=== PATIENT | female | born 1945 | race Caucasian/White ===

== ENCOUNTER 2018-05-02 18:58 | Emergency (ER) | payer MEDICARE, MEDICAID ==
[~2018-05-02] VITALS: Ht 162.6 cm; Wt 58.1 kg
[~2018-05-02 18:58] MED LIST: ASPI81TA31 PO; EZET10TA13 PO; INSU100V7 SQ; LEVO50TA PO; LOSA25TA13 PO; SITA1TAB6 PO
[2018-05-02] MEDS ORDERED: OXYCODONE (19:36)
[2018-05-02] MEDS ORDERED: ACETAMINOPHEN (19:36)
[2018-05-02] MEDS ORDERED: KETOROLAC TROMETHAMINE 15 MG INJ IV ONE (20:15)
[2018-05-02] MEDS ORDERED: IV NORMAL SALINE 1000 ML BAG IV ONE (20:15)
[2018-05-02] MEDS ORDERED: METOCLOPRAMIDE HCL 10 MG/2 ML VIAL IV ONE (20:15)
--- NOTE | 2018-05-02 20:20 | NUR ---
PT REFUSES BLOOD DRAW. MADE AWARE.
[2018-05-02] MEDS ORDERED: KETOROLAC TROMETHAMINE 15 MG INJ ONE (20:32)
[2018-05-02] MEDS ORDERED: METOCLOPRAMIDE HCL 10 MG/2 ML VIAL ONE (20:32)
--- NOTE | 2018-05-02 20:35 | NUR ---
PT ABLE TO AMBULATE TO RESTROOM UNASSISTED WITH STEADY GAIT.
--- NOTE | 2018-05-02 20:43 | NUR ---
PT IN BED RESTING QUIETLY. PT'S SON AT BEDSIDE. PT'S IV FLUIDS ARE INFUSING. PT IS CALM AND COOPERATIVE. NO SIGNS OF DISTRESS WITNESSED AT THIS TIME.
--- NOTE | 2018-05-02 21:20 | NUR ---
Patient discharged to home in stable conditon. Written and verbal after care instructions given. Patient verbalizes understanding of instructions. Patient able to ambulate unassisted with steady gait. Patient left with all personal belongings.
[2018-05-02 21:28] VITALS: BP 118/68
== END 2018-05-02 21:20 | disposition home or self-care (01) ==
LOC: ER 19:00
DX: R11.2 Nausea with vomiting, unspecified (principal); G89.18 Other acute postprocedural pain; E11.9 Type 2 diabetes mellitus without complications; Z90.710 Acquired absence of both cervix and uterus; Z88.6 Allergy status to analgesic agent; Z79.4 Long term (current) use of insulin; Z79.891 Long term (current) use of opiate analgesic; Z79.82 Long term (current) use of aspirin; Z79.899 Other long term (current) drug therapy
CPT/HCPCS: 96361; 96374; 96375; 99284; A4663; J1885; J2765; J7030

== ENCOUNTER 2021-04-07 09:52 | Emergency (ER) | payer MEDICARE, OTHER ==
[~2021-04-07] VITALS: Ht 162.6 cm; Wt 57.2 kg
[~2021-04-07 09:52] MED LIST changes: +ACETAMINOPHEN; -ASPI81TA31 PO; -EZET10TA13 PO; +EZET10TA15 PO; -LOSA25TA13 PO; +LOSA25TA27 PO; +OXYCODONE
--- NOTE | 2021-04-07 10:13 | NUR ---
PT IS IN ROOM #2A. DR GUNDERSON EVALUATED THE PT.
[2021-04-07] MEDS ORDERED: IV NORMAL SALINE 1000 ML BAG IV ONE ×2 (10:30→10:45)
[2021-04-07] MEDS ORDERED: SEMA0.25 SQ (10:39)
[2021-04-07 11:05] LABS: BASOPHILS % (AUTO) 0.2 % (0.0-2.0); EOSINOPHILS # (AUTO) 0.1 K/uL (0.0-0.7); EOSINOPHILS % (AUTO) 1.1 % (0.0-7.0); HEMATOCRIT 38.9 % (31.2-41.9); HEMOGLOBIN 12.6 g/dL (10.9-14.3); LYMPHOCYTES # (AUTO) 1.9 K/uL (20.0-40.0); LYMPHOCYTES % (AUTO) 30.8 % (20.5-51.5); MEAN CORPUSCULAR HGB CONC 33 g/dL (32.3-35.6); MEAN CORPUSCULAR VOLUME 89.2 fL (75.5-95.3); MONOCYTES # (AUTO) 0.7 K/uL (2.0-10.0); MONOCYTES % (AUTO) 12.1 % (0.0-11.0); NEUTROPHILS # (AUTO) 3.4 K/uL (1.8-8.9); NEUTROPHILS % (AUTO) 55.8 % (38.5-71.5); PLATELET COUNT (AUTO) 360 K/uL (179-408); RED BLOOD CELL COUNT(AUTO) 4.36 MIL/uL (3.63-4.92); WHITE BLOOD COUNT (AUTO) 6.1 K/uL (3.8-11.8)
[2021-04-07 11:18] LABS: CREATININE 0.6 mg/dL (0.6-1.3); POTASSIUM 3.7 mmol/L (3.5-5.1)
[2021-04-07 11:30] LABS: BILIRUBIN,DIRECT 0.1 mg/dL (0.0-0.2); BILIRUBIN,TOTAL 0.5 mg/dL (0.2-1.0); TOTAL PROTEIN, SERUM 7.7 g/dL (6.4-8.2)
[2021-04-07 12:05] LABS: *BILIRUBIN,URIN NEGATIVE (NEGATIVE); *BLOOD, URINE NEGATIVE (NEGATIVE); *CLARITY,URINE CLEAR (CLEAR); *COLOR,URINE YELLOW (YELLOW); *KETONES,URINE NEGATIVE (NEGATIVE); *UROBILINOGEN,URINE 0.2 E.U./dl (NORMAL); LEUKOCYTE ESTERASE ,URINE NEGATIVE (NEGATIVE); NITRITE, URINE NEGATIVE (NEGATIVE); UGLUCOSE 2+ (NEGATIVE)
[2021-04-07 12:16] LABS: BACTERIA,URINE NONE SEEN /HPF (NONE SEEN); SQUAMOUS EPITHELIAL CELL,UR NONE SEEN /HPF (NONE SEEN); WBC,URINE NONE SEEN /HPF (0-3)
--- NOTE | 2021-04-07 12:37 | NUR ---
PT WAS D/C'd TO HOME, AFTER DR GUNDERSON RE-EVALUATION. D/C INSTRUCTIONS GIVEN TO THE PT BY DR GUNDERSON.
[2021-04-07 12:40] VITALS: BP 118/68
== END 2021-04-07 12:41 | disposition home or self-care (01) ==
LOC: ER 09:52
DX: R55 Syncope and collapse (principal); I95.9 Hypotension, unspecified; Z86.79 Personal history of other diseases of the circulatory system; I70.0 Atherosclerosis of aorta; Z88.5 Allergy status to narcotic agent; E11.9 Type 2 diabetes mellitus without complications; Z79.899 Other long term (current) drug therapy
CPT/HCPCS: 36415; 70030-TC; 71045; 83605; 84443; 85025; 85730; 87040; 87086; 93005; A4663; J7030

== ENCOUNTER 2022-01-26 14:38 | Emergency (ER) | payer MEDICARE, OTHER ==
[~2022-01-26] VITALS: Ht 162.6 cm; Wt 56.7 kg
[~2022-01-26 14:38] MED LIST changes: -ACETAMINOPHEN; -EZET10TA15 PO; -LOSA25TA27 PO; -OXYCODONE; +SEMA0.25 SQ
--- NOTE | 2022-01-26 14:53 | NUR ---
PT IS IN ROOM #2A. DR GUNDERSON EVALUATED THE PT.
[2022-01-26] MEDS ORDERED: ONDANSETRON 4 MG/2 ML VIAL IV ONE (15:15)
[2022-01-26] MEDS ORDERED: PANTOPRAZOLE SODIUM 40 MG VIAL IV ONE (15:15)
[2022-01-26] MEDS ORDERED: IV NORMAL SALINE 1000 ML BAG IV ONE ×2 (15:15→16:00)
[2022-01-26 15:28] LABS: HEMATOCRIT 38.7 % (31.2-41.9); MEAN CORPUSCULAR HEMOGLOBIN 29.9 uug (24.7-32.8); PLATELET COUNT (AUTO) 359 K/uL (179-408)
[2022-01-26] MEDS ORDERED: PANTOPRAZOLE SODIUM 40 MG VIAL ONE (15:29)
[2022-01-26] MEDS ORDERED: ONDANSETRON 4 MG/2 ML VIAL ONE (15:29)
[2022-01-26 15:33] LABS: CARBON DIOXIDE 27 mmol/L (21-32); CHLORIDE 105 mmol/L (98-107); CREATININE 0.6 mg/dL (0.6-1.3); GLUCOSE 150 mg/dL (74-106); POTASSIUM 3.9 mmol/L (3.5-5.1); UREA NITROGEN, BLOOD 26 mg/dL (7-18)
[2022-01-26 15:47] LABS: ALANINE AMINOTRANSFERASE 21 U/L (14-59); ALKALINE PHOSPHATASE 44 U/L (50-136); ASPARTATE AMINOTRANSFERASE 11 U/L (15-37); BILIRUBIN,DIRECT 0.2 mg/dL (0.0-0.2); BILIRUBIN,TOTAL 0.7 mg/dL (0.2-1.0); TOTAL PROTEIN, SERUM 7.2 g/dL (6.4-8.2)
[2022-01-26 16:47] LABS: *BILIRUBIN,URIN NEGATIVE (NEGATIVE); *BLOOD, URINE NEGATIVE (NEGATIVE); *CLARITY,URINE CLEAR (CLEAR); *COLOR,URINE YELLOW (YELLOW); *KETONES,URINE 1+ (NEGATIVE); *UROBILINOGEN,URINE 0.2 E.U./dl (NORMAL); LEUKOCYTE ESTERASE ,URINE NEGATIVE (NEGATIVE); NITRITE, URINE NEGATIVE (NEGATIVE); PH,URINE 5.5 (5.0-8.0); UGLUCOSE 2+ (NEGATIVE)
[2022-01-26] MEDS ORDERED: ONDA8TAB13 PO (16:53)
--- NOTE | 2022-01-26 17:50 | NUR ---
PT WAS D/C'd TO HOME. D/C INSTRUCTIONS GIVEN TO THE PT BY DR GUNDERSON.
[2022-01-26 17:51] VITALS: BP 124/63
== END 2022-01-26 18:44 | disposition home or self-care (01) ==
LOC: ER 14:39
DX: A08.4 Viral intestinal infection, unspecified (principal); Z20.822 Contact with and (suspected) exposure to COVID-19; Z82.49 Family history of ischemic heart disease and other diseases of the circulatory system; R94.31 Abnormal electrocardiogram [ECG] [EKG]; E11.9 Type 2 diabetes mellitus without complications; Z79.84 Long term (current) use of oral hypoglycemic drugs; Z79.4 Long term (current) use of insulin; Z90.710 Acquired absence of both cervix and uterus; Z88.6 Allergy status to analgesic agent
CPT/HCPCS: 36415; 71045; 80048; 80076; 81003; 83605; 83880; 84484; 85025; 85730; 87040 ×2; 87086; 87426; 93005; 96361; 96374; 96375; 99285; C9113; J2405; A4663; J7030

== ENCOUNTER 2024-08-16 08:58 | Emergency (ER) | payer MEDICARE, OTHER ==
[~2024-08-16] VITALS: Ht 162.6 cm; Wt 58.1 kg
[~2024-08-16 08:58] MED LIST changes: +ONDA8TAB13 PO
[2024-08-16 09:02] VITALS: O2SAT 97
[2024-08-16 09:47] LABS: CALCIUM 8.7 mg/dL (8.5-10.1); CARBON DIOXIDE 30 mmol/L (21-32); CHLORIDE 105 mmol/L (98-107); CREATININE 0.5 mg/dL (0.6-1.3); GLUCOSE 115 mg/dL (74-106); SODIUM SERUM 141 mmol/L (136-145); UREA NITROGEN, BLOOD 13 mg/dL (7-18)
[2024-08-16 09:53] LABS: DIFFERENTIAL COMMENT 0; HEMOGLOBIN 11.5 g/dL (10.9-14.3); MEAN CORPUSCULAR HEMOGLOBIN 30.7 uug (24.7-32.8); MEAN CORPUSCULAR HGB CONC 34 g/dL (32.3-35.6); MEAN CORPUSCULAR VOLUME 91.2 fL (75.5-95.3); MONOCYTES # (AUTO) 3.3 K/uL (0.1-1.30); NEUTROPHILS # (AUTO) 4.9 K/uL (1.8-8.9); PLATELET COUNT (AUTO) 323 K/uL (179-408); POTASSIUM 3.9 mmol/L (3.5-5.1); RED BLOOD CELL COUNT(AUTO) 3.73 MIL/uL (3.63-4.92); RED CELL DISTRIBUTION WIDTH 13.1 % (12.3-17.7); WHITE BLOOD COUNT (AUTO) 8.2 K/uL (3.8-11.8)
[2024-08-16 09:56] LABS: LYMPHOCYTES % (MANUAL) 0 % (20-40); NEUTROPHILS % (MANUAL) 0 % (42-75)
[2024-08-16] MEDS ORDERED: HYDROCODONE/APAP 5-325MG TABLET ONE (10:40)
[2024-08-16] MEDS: HYDROCODONE/APAP 5-325MG TABLET PO ONE (10:44)
[2024-08-16] MEDS ORDERED: KETOROLAC TROMETHAMINE 60 MG INJ IM ONE (11:30)
[2024-08-16] MEDS ORDERED: INDO-13 PO (11:39)
[2024-08-16] MEDS: KETOROLAC TROMETHAMINE 60 MG INJ IM ONE (11:40)
== END 2024-08-16 12:12 | disposition home or self-care (01) ==
LOC: ER 08:58
DX: M10.9 Gout, unspecified (principal); E11.9 Type 2 diabetes mellitus without complications; Z90.49 Acquired absence of other specified parts of digestive tract; Z90.710 Acquired absence of both cervix and uterus; Z79.4 Long term (current) use of insulin; Z79.84 Long term (current) use of oral hypoglycemic drugs; Z88.5 Allergy status to narcotic agent; Z88.7 Allergy status to serum and vaccine
CPT/HCPCS: 99285; 93971; 80048; 84550; 85025; 84145; 85651; 86140; 36415; 73620; 96372; 85007; J1885; 70030-TC; A4606; A4663

== ENCOUNTER 2024-08-27 12:21 | Emergency (ER) | payer MEDICARE, OTHER ==
[~2024-08-27] VITALS: Ht 162.6 cm; Wt 57.6 kg
[~2024-08-27 12:21] MED LIST changes: +INDO-13 PO
[2024-08-27 13:05] LABS: EOSINOPHILS # (AUTO) 0.1 K/uL (0.0-0.7); MONOCYTES # (AUTO) 0.5 K/uL (0.1-1.30)
[2024-08-27 13:10] LABS: CALCIUM 8.9 mg/dL (8.5-10.1); CARBON DIOXIDE 31 mmol/L (21-32); CHLORIDE 102 mmol/L (98-107); CREATININE 0.6 mg/dL (0.6-1.3); GLUCOSE 188 mg/dL (74-106); POTASSIUM 3.8 mmol/L (3.5-5.1); SODIUM SERUM 140 mmol/L (136-145); UREA NITROGEN, BLOOD 17 mg/dL (7-18)
[2024-08-27 13:11] LABS: BASOPHILS % (AUTO) 0.1 % (0.0-2.0); EOSINOPHILS % (AUTO) 2.4 % (0.0-7.0); HEMATOCRIT 33.9 % (31.2-41.9); HEMOGLOBIN 11.4 g/dL (10.9-14.3); LYMPHOCYTES # (AUTO) 1.5 K/uL (0.8-4.8); LYMPHOCYTES % (AUTO) 34.5 % (20.5-51.5); MEAN CORPUSCULAR HEMOGLOBIN 30.6 uug (24.7-32.8); MEAN CORPUSCULAR HGB CONC 34 g/dL (32.3-35.6); MONOCYTES % (AUTO) 10.6 % (0.0-11.0); NEUTROPHILS # (AUTO) 2.3 K/uL (1.8-8.9); NEUTROPHILS % (AUTO) 52.4 % (38.5-71.5); PLATELET COUNT (AUTO) 321 K/uL (179-408); RED BLOOD CELL COUNT(AUTO) 3.72 MIL/uL (3.63-4.92); RED CELL DISTRIBUTION WIDTH 13.2 % (12.3-17.7); WHITE BLOOD COUNT (AUTO) 4.5 K/uL (3.8-11.8)
[2024-08-27 13:16] LABS: ALANINE AMINOTRANSFERASE 17 U/L (14-59); ALBUMIN 3.1 g/dL (3.4-5.0); ALKALINE PHOSPHATASE 61 U/L (50-136); ASPARTATE AMINOTRANSFERASE 13 U/L (15-37); BILIRUBIN,TOTAL 0.4 mg/dL (0.2-1.0); DIFFERENTIAL COMMENT 1; TOTAL PROTEIN, SERUM 6.8 g/dL (6.4-8.2)
[2024-08-27] MEDS ORDERED: IBUP-1955 PO (14:58)
[2024-08-27] MEDS ORDERED: DEXA4TAB PO (14:58)
[2024-08-27 15:01] VITALS: BP 108/69; O2SAT 97
== END 2024-08-27 15:00 | disposition home or self-care (01) ==
LOC: ER 12:59
DX: R53.83 Other fatigue (principal); E11.9 Type 2 diabetes mellitus without complications; R51.9 Headache, unspecified; Z79.84 Long term (current) use of oral hypoglycemic drugs; Z79.1 Long term (current) use of non-steroidal anti-inflammatories (NSAID); Z79.890 Hormone replacement therapy; Z90.49 Acquired absence of other specified parts of digestive tract; Z79.52 Long term (current) use of systemic steroids; Z79.4 Long term (current) use of insulin; Z90.710 Acquired absence of both cervix and uterus; Z20.822 Contact with and (suspected) exposure to COVID-19; Z88.7 Allergy status to serum and vaccine; Z88.5 Allergy status to narcotic agent
CPT/HCPCS: 36415; 70450; 85025; A4606; A4663

== ENCOUNTER 2025-07-23 04:14 | Emergency (ER) | payer MEDICARE, OTHER ==
[~2025-07-23] VITALS: Ht 162.6 cm; Wt 58.1 kg
[~2025-07-23 04:14] MED LIST changes: +DEXA4TAB PO; +IBUP-1955 PO
[2025-07-23 04:17] VITALS: BP 114/52
[2025-07-23 04:45] LABS: PLATELET COUNT (AUTO) 359 K/uL (179-408); RED BLOOD CELL COUNT(AUTO) 4.13 MIL/uL (3.63-4.92); RED CELL DISTRIBUTION WIDTH 14.1 % (12.3-17.7); WHITE BLOOD COUNT (AUTO) 9.3 K/uL (3.8-11.8)
[2025-07-23] MEDS ORDERED: ONDANSETRON 4 MG/2 ML VIAL ONE (04:51)
[2025-07-23 04:52] LABS: *BILIRUBIN,URIN NEGATIVE (NEGATIVE); *BLOOD, URINE NEGATIVE (NEGATIVE); *CLARITY,URINE CLEAR (CLEAR); *COLOR,URINE YELLOW (YELLOW); *KETONES,URINE NEGATIVE (NEGATIVE); *PROTEIN,URINE NEGATIVE (NEGATIVE); *UROBILINOGEN,URINE 0.2 E.U./dl (NORMAL); LEUKOCYTE ESTERASE ,URINE 2+ (NEGATIVE); NITRITE, URINE NEGATIVE (NEGATIVE); UGLUCOSE NEGATIVE (NEGATIVE)
[2025-07-23] MEDS ORDERED: MORPHINE SULFATE 4 MG/1 ML DISP.SYRIN ONE (04:52)
[2025-07-23 04:53] LABS: CREATININE 0.6 mg/dL (0.6-1.3); SODIUM SERUM 144 mmol/L (136-145); UREA NITROGEN, BLOOD 14 mg/dL (7-18)
[2025-07-23] MEDS: MORPHINE SULFATE 4 MG/1 ML DISP.SYRIN IV ONE (04:54)
[2025-07-23] MEDS: ONDANSETRON 4 MG/2 ML VIAL IV ONE (04:54)
[2025-07-23] MEDS: IV NORMAL SALINE 500 ML BAG IV ONE (04:54)
[2025-07-23 04:59] LABS: ASPARTATE AMINOTRANSFERASE 7 U/L (15-37); TOTAL PROTEIN, SERUM 8.5 g/dL (6.4-8.2)
[2025-07-23 05:02] LABS: SQUAMOUS EPITHELIAL CELL,UR FEW /HPF (NONE SEEN)
[2025-07-23] MEDS: CEFTRIAXONE 500 MG VIAL IV STA (06:10)
[2025-07-23] MEDS ORDERED: CEFTRIAXONE /D5W 50ML IVPB **ER PYXIS IV ONE (06:10)
[2025-07-23] MEDS ORDERED: CEFD300C3 PO (08:33)
[2025-07-23 08:53] VITALS: BP 112/59; TEMP 97.6; O2SAT 97
== END 2025-07-23 08:55 | disposition home or self-care (01) ==
LOC: ER 04:17
DX: N39.0 Urinary tract infection, site not specified (principal); R10.9 Unspecified abdominal pain; E11.65 Type 2 diabetes mellitus with hyperglycemia; E03.9 Hypothyroidism, unspecified; Z79.1 Long term (current) use of non-steroidal anti-inflammatories (NSAID); Z79.4 Long term (current) use of insulin; Z79.52 Long term (current) use of systemic steroids; Z79.84 Long term (current) use of oral hypoglycemic drugs; Z79.890 Hormone replacement therapy; Z87.442 Personal history of urinary calculi; Z88.5 Allergy status to narcotic agent; Z88.7 Allergy status to serum and vaccine; Z90.49 Acquired absence of other specified parts of digestive tract; Z90.710 Acquired absence of both cervix and uterus
CPT/HCPCS: 99285; 74176; 96374; 96375; 80076; 80048; 81001; 83690; 85025; 87086; 36415; J0696; J2405; J2270; J7040; A4606; A4663

== ENCOUNTER 2025-09-30 14:29 | Emergency (ER) | payer MEDICARE, OTHER ==
[~2025-09-30] VITALS: Ht 162.6 cm; Wt 68.0 kg
[~2025-09-30 14:29] MED LIST changes: +CEFD300C3 PO
[2025-09-30 15:03] LABS: PLATELET COUNT (AUTO) 355 K/uL (179-408); RED BLOOD CELL COUNT(AUTO) 3.97 MIL/uL (3.63-4.92); RED CELL DISTRIBUTION WIDTH 14.6 % (12.3-17.7); WHITE BLOOD COUNT (AUTO) 6.6 K/uL (3.8-11.8)
[2025-09-30 15:08] LABS: CREATININE 0.6 mg/dL (0.6-1.3); SODIUM SERUM 141 mmol/L (136-145); UREA NITROGEN, BLOOD 15 mg/dL (7-18)
[2025-09-30 15:14] LABS: ASPARTATE AMINOTRANSFERASE 14 U/L (15-37); TOTAL PROTEIN, SERUM 7.8 g/dL (6.4-8.2)
[2025-09-30 16:05] VITALS: BP 132/62
[2025-09-30 16:15] LABS: *BILIRUBIN,URIN NEGATIVE (NEGATIVE); *BLOOD, URINE NEGATIVE (NEGATIVE); *CLARITY,URINE CLEAR (CLEAR); *COLOR,URINE YELLOW (YELLOW); *KETONES,URINE NEGATIVE (NEGATIVE); *PROTEIN,URINE NEGATIVE (NEGATIVE); *UROBILINOGEN,URINE 0.2 E.U./dl (NORMAL); LEUKOCYTE ESTERASE ,URINE 1+ (NEGATIVE); NITRITE, URINE NEGATIVE (NEGATIVE); UGLUCOSE NEGATIVE (NEGATIVE)
[2025-09-30 16:34] LABS: SQUAMOUS EPITHELIAL CELL,UR FEW /HPF (NONE SEEN)
[2025-09-30] MEDS ORDERED: FOSFOMYCIN TROMETHAMINE 3 GM PACKET ONE (16:42)
[2025-09-30] MEDS: FOSFOMYCIN TROMETHAMINE 3 GM PACKET PO ONE (16:52)
[2025-09-30 17:02] VITALS: BP 132/62; TEMP 98.1; O2SAT 98
== END 2025-09-30 17:02 | disposition home or self-care (01) ==
LOC: ER 14:33
DX: R42 Dizziness and giddiness (principal); N39.0 Urinary tract infection, site not specified; E78.5 Hyperlipidemia, unspecified; E11.9 Type 2 diabetes mellitus without complications; Z79.1 Long term (current) use of non-steroidal anti-inflammatories (NSAID); Z79.4 Long term (current) use of insulin; Z79.52 Long term (current) use of systemic steroids; Z79.84 Long term (current) use of oral hypoglycemic drugs; Z79.890 Hormone replacement therapy; Z88.5 Allergy status to narcotic agent; Z88.7 Allergy status to serum and vaccine; Z90.49 Acquired absence of other specified parts of digestive tract; Z90.710 Acquired absence of both cervix and uterus; Z60.2 Problems related to living alone; Z86.2 Personal history of diseases of the blood and blood-forming organs and certain disorders involving the immune mechanism
CPT/HCPCS: 36415; 71045; 83605; 84443; 84484; 85025; 85730; 87086; A4606; A4663

== ENCOUNTER 2025-10-29 02:38 | Emergency (ER) | payer MEDICARE, OTHER ==
[~2025-10-29] VITALS: Ht 162.6 cm; Wt 59.0 kg
[~2025-10-29 02:38] MED LIST changes: -IBUP-1955 PO; +IBUP-2760 PO; +ONDA-245 PO; -ONDA8TAB13 PO
[2025-10-29 02:49] VITALS: BP 137/49
[2025-10-29 03:14] VITALS: BP 137/49; O2SAT 96
== END 2025-10-29 03:31 | disposition home or self-care (01) ==
LOC: ER 02:38
DX: E11.9 Type 2 diabetes mellitus without complications (principal); Z79.1 Long term (current) use of non-steroidal anti-inflammatories (NSAID); Z79.4 Long term (current) use of insulin; Z79.52 Long term (current) use of systemic steroids; Z79.84 Long term (current) use of oral hypoglycemic drugs; Z79.890 Hormone replacement therapy; Z88.5 Allergy status to narcotic agent; Z88.7 Allergy status to serum and vaccine; Z90.49 Acquired absence of other specified parts of digestive tract; Z90.710 Acquired absence of both cervix and uterus; Z60.2 Problems related to living alone
CPT/HCPCS: A4606; A4663